=== PATIENT | female | born 1955 | race Caucasian/White ===

== ENCOUNTER → 2020-07-05 09:26 | Outpatient (REF) | payer OTHER, SELFPAY | LOC: ANHLAB 09:26 | PROVIDERS: PCP Family Medicine; Visit Provider Nurse Practitioner | DX: C44.722 Squamous cell carcinoma of skin of right lower limb, including hip (principal) | CPT/HCPCS: 88305; 88331 ==

== ENCOUNTER → 2021-11-28 14:09 | Outpatient (CLI) | payer BC, SELFPAY ==
--- NOTE | ~2021-11-28 | XR_ITS ---
XR wrist RT min 3V DATE: 11/28/2021 14:33 INDICATION: Right wrist pain TECHNIQUE: 4 views COMPARISON: None FINDINGS: No fracture or dislocation, periosteal reaction or bone destruction, erosive change or frederic drocalcinosis. IMPRESSION: No significant abnormality Reviewed, dictated and finalized at location B. IMPRESSION: No significant abnormality
== END ==
PROVIDERS: PCP Family Medicine; Visit Provider Family Medicine
DX: M25.531 Pain in right wrist (principal)
CPT/HCPCS: 73110